=== PATIENT | female | born 2000 | race Caucasian/White ===

== ENCOUNTER 2022-07-19 19:02 | Emergency (ER) | payer OTHER ==
[~2022-07-19] VITALS: Ht 157.5 cm; Wt 56.2 kg
[2022-07-19] MEDS ORDERED: NS 500 ML IV ONE (21:35)
[2022-07-19] MEDS ORDERED: VANCOMYCIN HCL 1,000 MG in IV FLUID PLACE HOLDER 1 EA IV ONE (21:35)
[2022-07-19] MEDS ORDERED: BOOSTRIX/ADACEL VACCINE (DIPHTH/PERTUSS/ACELL/TETANUS) 0.5ML SYR IM ONE (21:40)
[2022-07-19] MEDS ORDERED: VANCOMYCIN HCL 750 MG, VIAL MATE ADAPTER 1 EACH in D5W 250 ML IV ONE (21:45)
[2022-07-19 22:15] LABS: BASO # 0.1 10^3/uL (0.0-0.2); BASO % 1.1 % (0.0-1.0); EOS # 0.2 10^3/uL (0.0-0.5); EOS % 2.3 % (0.0-3.0); HEMOGLOBIN 14.4 g/dl (12.0-15.5); LYMPH # 3.1 10^3/uL (1.5-5.0); MEAN CORPUSCULAR HEMOGLOBIN 31.1 pg (27.0-33.0); MEAN CORPUSCULAR HGB CONC 34.3 g/dl (32.0-36.5); MEAN CORPUSCULAR VOLUME 90.7 fl (80.0-96.0); MONO # 0.3 10^3/uL (0.0-0.8); MONO % 4.6 % (2.0-8.0); NEUTROPHILS % 44.8 % (36.0-66.0); PLATELET COUNT, AUTOMATED 299 10^3/uL (150-450); RED BLOOD COUNT 4.63 10^6/uL (4.00-5.40); WHITE BLOOD COUNT 6.6 10^3/uL (4.0-10.0)
[2022-07-19 22:20] LABS: ERYTHROCYTE SEDIMENTATION RATE 9 mm/hr (0-20)
[2022-07-19 22:40] LABS: ALBUMIN 4.3 G/DL (3.2-5.2); ALKALINE PHOSPHATASE 111 U/L (46-116); ALT/SGPT 68 U/L (7.0-40); AST/SGOT 80 U/L (<34); BILIRUBIN,DIRECT 0.1 MG/DL (<0.4); BILIRUBIN,TOTAL 0.3 MG/DL (0.3-1.2); TOTAL PROTEIN 7.5 G/DL (5.7-8.2)
[2022-07-19 22:42] LABS: HEPATITIS B SURFACE ANTIBODY POSITIVE (POSITIVE)
[2022-07-19 22:44] LABS: C REACTIVE PROTEIN QUANTITATIV < 0.40 MG/DL (<1.0)
[2022-07-19] MEDS ORDERED: VANCOMYCIN HCL 500 MG in D5W MINI-BAG PLUS 100 ML IV ONE (22:45)
[2022-07-19 22:55] LABS: HEPATITIS B SURFACE ANTIGEN NEGATIVE (NEGATIVE)
[2022-07-19 23:07] LABS: HIV 1&2 SCREEN CENTAUR NEGATIVE (NEGATIVE)
[2022-07-19] MEDS ORDERED: diphenhydrAMINE 50MG/ML VIAL IV ONE (23:55)
[2022-07-20] MEDS ORDERED: BACT800T5 PO (00:14)
[2022-07-20 00:52] VITALS: BP 123/84
[2022-07-20] MEDS ORDERED: PRED20TA PO (18:44)
== END 2022-07-20 00:54 | disposition home or self-care (01) ==
LOC: M ED 19:02
DX: L03.111 Cellulitis of right axilla (principal); F41.9 Anxiety disorder, unspecified; Z23 Encounter for immunization
CPT/HCPCS: 70450; 80047; 80076; 83605; 84702; 85025; 85652; 86140; 86706; 86803; 87040; 87340; 87389; 90471; 90715; 96374; 96375; 99284; J1200; J3370

== ENCOUNTER 2022-07-20 15:03 | Emergency (ER) | payer OTHER ==
[~2022-07-20] VITALS: Ht 157.5 cm; Wt 56.2 kg
[~2022-07-20 15:03] MED LIST: BACT800T5 PO
[2022-07-20] MEDS ORDERED: methylPREDNISolone 125MG 2ML VIAL IV ONE (16:55)
[2022-07-20] MEDS ORDERED: diphenhydrAMINE 50MG/ML VIAL IV ONE (16:55)
[2022-07-20] MEDS ORDERED: FAMOTIDINE 20MG/2ML VIAL IVP ONE (16:55)
[2022-07-20] MEDS ORDERED: NS 1,000 ML IV ONE (16:55)
[2022-07-20 17:26] LABS: BASO # 0.1 10^3/uL (0.0-0.2); BASO % 1.4 % (0.0-1.0); EOS # 0.1 10^3/uL (0.0-0.5); EOS % 2.4 % (0.0-3.0); HEMATOCRIT 44.1 % (36.0-47.0); HEMOGLOBIN 14.8 g/dl (12.0-15.5); LYMPH # 2.3 10^3/uL (1.5-5.0); LYMPH % 44.7 % (24.0-44.0); MEAN CORPUSCULAR HEMOGLOBIN 30.9 pg (27.0-33.0); MEAN CORPUSCULAR HGB CONC 33.6 g/dl (32.0-36.5); MEAN CORPUSCULAR VOLUME 92.1 fl (80.0-96.0); MONO # 0.3 10^3/uL (0.0-0.8); MONO % 5.3 % (2.0-8.0); NEUTROPHILS # 2.4 10^3/uL (1.5-8.5); PLATELET COUNT, AUTOMATED 277 10^3/uL (150-450); RED BLOOD COUNT 4.79 10^6/uL (4.00-5.40); WHITE BLOOD COUNT 5.1 10^3/uL (4.0-10.0)
[2022-07-20 17:39] LABS: ERYTHROCYTE SEDIMENTATION RATE 8 mm/hr (0-20)
[2022-07-20 17:51] LABS: C REACTIVE PROTEIN QUANTITATIV < 0.40 MG/DL (<1.0)
[2022-07-20 17:52] LABS: BLOOD UREA NITROGEN 5 MG/DL (9-23); CALCIUM LEVEL 8.3 MG/DL (8.5-10.1); CARBON DIOXIDE LEVEL 26 MMOL/L (20-31); CHLORIDE LEVEL 108 MMOL/L (98-107); CREATININE FOR GFR 0.56 MG/DL (0.55-1.30); GLOMERULAR FILTRATION RATE > 60.0 (>60); GLUCOSE, FASTING 93 MG/DL (60-100); POTASSIUM SERUM 4.4 MMOL/L (3.5-5.1); SODIUM LEVEL 143 MMOL/L (136-145)
[2022-07-20] MEDS ORDERED: PRED20TA PO (18:44)
[2022-07-20 18:50] VITALS: BP 129/61
== END 2022-07-20 19:05 | disposition home or self-care (01) ==
LOC: M ED 15:03
DX: T88.7XXA Unspecified adverse effect of drug or medicament, initial encounter (principal); F41.9 Anxiety disorder, unspecified; Z88.1 Allergy status to other antibiotic agents
CPT/HCPCS: 80048; 85025; 85652; 86140; 96361; 96374; 96375; 99283; J1200; J2930; S0028